=== PATIENT | female | born 1985 | race Caucasian/White ===

== ENCOUNTER 2022-04-03 17:04 | Emergency (ER) | payer SELFPAY ==
[~2022-04-03] VITALS: Ht 167.6 cm; Wt 72.6 kg
--- NOTE | 2022-04-03 17:04 | NUR ---
BIB by paramedics accompanied by [employer] in handcuff. Patient AAOx1 restless agitated hyperverbal. Upon assessment pt. refusing to answer questions, and ressponding with different statements unrelated to what is being asked.
[2022-04-03] MEDS ORDERED: OLANZAPINE 10 MG VIAL IM ONE ×2 (17:54→18:00)
[2022-04-03] MEDS ORDERED: LORAZEPAM 2 MG/1 ML VIAL ONE (17:55)
[2022-04-03] MEDS ORDERED: LORAZEPAM 2 MG/1 ML VIAL IM ONE (18:00)
--- NOTE | 2022-04-03 18:11 | NUR ---
Pt keeps yelling incoherantly, switching between [place] and [place]. Placed pt in wrist restraints -- danger to self and staff.
[2022-04-03] MEDS ORDERED: diphenhydrAMINE 50 MG/1 ML VIAL IM ONE (19:00)
[2022-04-03] MEDS ORDERED: HALOPERIDOL LACTATE 5 MG/1 ML VIAL IM ONE (19:00)
[2022-04-03] MEDS ORDERED: HALOPERIDOL LACTATE 5 MG/1 ML VIAL ONE (19:03)
[2022-04-03] MEDS ORDERED: diphenhydrAMINE 50 MG/1 ML VIAL ONE (19:03)
[2022-04-03 19:25] LABS: HEMATOCRIT 31.2 % (31.2-41.9); MEAN CORPUSCULAR HEMOGLOBIN 23.6 uug (24.7-32.8); PLATELET COUNT (AUTO) 337 K/uL (179-408)
[2022-04-03 19:35] LABS: CARBON DIOXIDE 22 mmol/L (21-32); CHLORIDE 105 mmol/L (98-107); CREATININE 1.2 mg/dL (0.6-1.3); GLUCOSE 103 mg/dL (74-106); POTASSIUM 3.7 mmol/L (3.5-5.1); UREA NITROGEN, BLOOD 28 mg/dL (7-18)
[2022-04-03 19:41] LABS: ALANINE AMINOTRANSFERASE 16 U/L (14-59); ALKALINE PHOSPHATASE 55 U/L (50-136); ASPARTATE AMINOTRANSFERASE 16 U/L (15-37); BILIRUBIN,DIRECT 0.2 mg/dL (0.0-0.2); BILIRUBIN,TOTAL 0.5 mg/dL (0.2-1.0); TOTAL PROTEIN, SERUM 7.1 g/dL (6.4-8.2)
[2022-04-03 19:44] LABS: ETHANOL < 3 MG/DL (0-0)
[2022-04-03 19:53] LABS: ACETAMINOPHEN < 2.0 ug/mL (10-30)
--- NOTE | 2022-04-03 20:26 | NUR ---
UA sent to lab
[2022-04-03 20:37] LABS: *BILIRUBIN,URIN NEGATIVE (NEGATIVE); *BLOOD, URINE NEGATIVE (NEGATIVE); *CLARITY,URINE CLEAR (CLEAR); *COLOR,URINE YELLOW (YELLOW); *KETONES,URINE 1+ (NEGATIVE); *UROBILINOGEN,URINE 0.2 E.U./dl (NORMAL); LEUKOCYTE ESTERASE ,URINE NEGATIVE (NEGATIVE); NITRITE, URINE NEGATIVE (NEGATIVE); PH,URINE 6.5 (5.0-8.0); UGLUCOSE NEGATIVE (NEGATIVE)
[2022-04-03 20:52] LABS: *AMPHETAMINE, URINE POSITIVE (NEGATIVE); *CANNABINOID, URINE POSITIVE (NEGATIVE); *COCCAINE, URINE NEGATIVE (NEGATIVE); *OPIATE, URINE NEGATIVE (NEGATIVE); *PHENCYCLIDINE SCREEN,URINE NEGATIVE (NEGATIVE)
[2022-04-03 21:56] LABS: *URINE HCG, QUAL NEG (NEGATIVE)
--- NOTE | 2022-04-04 07:05 | NUR ---
Report given to Leti HANNA
--- NOTE | 2022-04-04 07:12 | NUR ---
Received endorsements to Lia HANNA and Berkley HANNA.
--- NOTE | 2022-04-04 07:25 | NUR ---
Charge Nursed called Director Mba for 1:1 staple fiber washer for the pt, also called PET for pt's eval.
--- NOTE | 2022-04-04 07:30 | NUR ---
Called nursing rail gang supervisor to request 1:1 sitter. Called security for 1:1 observation per rail gang supervisor request.
--- NOTE | 2022-04-04 07:33 | NUR ---
backroom associate arrived and is at bedside for 1:1 observation.
--- NOTE | 2022-04-04 08:04 | NUR ---
Breakfast given to the pt.
--- NOTE | 2022-04-04 08:05 | NUR ---
Spoke with Memo Mayer LCSW via telephone. He stated he will be in later to evaluate the patient to determine placement/disposition.
--- NOTE | 2022-04-04 10:48 | NUR ---
Pt discharged to home in stable condition. Written and verbal after care instructions given. Pt verbalizes understanding of instructions. Stressed follow up or return to ER for worsening s/s.
[2022-04-04 10:50] VITALS: BP 133/86
== END 2022-04-04 10:35 | disposition home or self-care (01) ==
LOC: ER 17:10
DX: F29 Unspecified psychosis not due to a substance or known physiological condition (principal); F15.121 Other stimulant abuse with intoxication delirium; Z78.1 Physical restraint status; Z59.00 Homelessness unspecified; R03.0 Elevated blood-pressure reading, without diagnosis of hypertension
CPT/HCPCS: 80076; 80048; 81003; 84703; 85025; 36415; 99285; 96372 ×2; 80299; 80320; 80307; J1200; J1630; J2060; A4663; C1758; G0480; J2358